=== PATIENT | male | born 1980 ===

== ENCOUNTER 2018-12-28 13:06 | Emergency (ER) | payer OTHER ==
[~2018-12-28] VITALS: Ht 188 cm; Wt 125.2 kg
== END 2018-12-28 14:30 | disposition home or self-care (01) ==
LOC: ED 13:06
PROC: 0YQGXZZ Repair Left Knee Region, External Approach (ICD-10-PCS; principal; 2018-12-28)
DX: S81.012A Laceration without foreign body, left knee, initial encounter (principal); F17.200 Nicotine dependence, unspecified, uncomplicated; W45.8XXA Other foreign body or object entering through skin, initial encounter
CPT/HCPCS: 12002; 99282-25